=== PATIENT | female | born 1935 | race African-American/Black ===

== ENCOUNTER 2016-08-26 09:48 | Emergency (ER) | payer MEDICARE, OTHER ==
[2016-08-26] MEDS ORDERED: Pantoprazole 40 MG VIAL ONE (10:17)
[2016-08-26 10:45] LABS: ALT (SGPT) 14 U/L (0-55); AST (SGOT) 12 U/L (5-34); Albumin 4.3 g/dL (3.4-4.8); Alkaline Phosphatase 58 U/L (40-150); Anion Gap 15 mmol/L (10-20); BUN (Urea Nitrogen) 37 mg/dL (9.8-20.1); Bilirubin, Total 1.4 mg/dL (0.2-1.2); Calc. Creatinine Clearance 0 mL/min (70-130); Carbon Dioxide 23 mmol/L (23-31); Chloride 106 mmol/L (98-107); Estimated GFR-MDRD 42; Globulin 3.6 g/dL (2.4-3.5); Glucose 104 mg/dL (83-110); Lipase 33 U/L (8-78); Potassium 5.7 mmol/L (3.5-5.1); Protein, Total 7.9 g/dL (5.8-8.1); Sodium 138 mmol/L (136-145)
[2016-08-26 10:46] LABS: CKMB 0.9 ng/mL (0-6.6); Troponin I Less than 0.010 ng/mL (< 0.028)
--- NOTE | 2016-08-26 10:47 | RAD ---
TWO VIEWS OF THE CHEST: Date: 08-26-16 Comparison: 12-04-11 History: Abdominal pain, heart palpitations. FINDINGS: Area of increased linear density in the left lung apex, stable when compared to the 2012 study. There is a small nodular density in the right perihilar region and right suprahilar region, also sta ble when compared to the 2012 exam. There is no pneumothorax, pleural fluid, lobar consolidations, o r alveolar edema. There is atherosclerotic calcification of the aortic arch. IMPRESSION: Stable appearance of the chest. No focal consolidation or alveolar edema. POS: [facility]
[2016-08-26 10:52] LABS: #Basophils 0.1 thou/uL (0.0-0.2); #Eosinphils 0.2 thou/uL (0.0-0.7); #Lymphocytes 1.7 thou/uL (1.20-3.40); #Monocytes 0.7 thou/uL (0.11-0.59); #Neutrophils 2.9 thou/uL (1.40-6.50); %Basophils 1.7 % (0.0-1.0); %Eosinophils 2.8 % (0.0-10.0); %Lymphocytes 31.4 % (21.0-51.0); %Neutrophils 52.1 % (42.0-75.0); Hemoglobin 14.2 g/dL (12.0-16.0); Mean Corpuscular HGB CONC 32.5 g/dL (32.0-36.0); Mean Corpuscular Hemoglobin 29.3 pg (27.0-31.0); Mean Corpuscular Volume 90.2 fl (81.0-99.0); Mean Platelet Volume 10.6 fL (7.4-10.4); Platelet Count 154 thou/uL (130-400); RBC Distribution Width 11.8 % (11.5-14.5); Red Blood Cell (RBC) Count 4.86 mill/uL (4.20-5.40); White Blood Cell (WBC) Count 5.5 thou/uL (4.8-10.8)
--- NOTE | 2016-08-26 11:13 | CT ---
CT ABDOMEN AND PELVIS WITHOUT IV CONTRAST: Date: 08-26-16 History: Left lower quadrant abdominal pain. Elevated creatinine. Comparison: 04-23-10 FINDINGS: Again noted are hypodense bilateral renal lesions which do demonstrate attenuation coefficients most consistent with cysts. Largest cyst in the midportion left kidney measures 5.4 cm. Some of these cy sts are larger in size compared to the prior study but are most likely related to enlargement of cys ts. No renal or ureteral calculi are seen and there is no hydronephrosis. There is increased density seen layering dependently within the gallbladder lumen which may represen t gallbladder calculi and/or small amount of sludge. There are a few subcentimeter too small to characterize hypodense lesions within the right hepatic l obe which were also present on the prior exam. Calcified granuloma in the liver is again present. Vascular calcifications are seen in the coronary arteries as well as involving the abdominal aorta a nd iliac arteries. Minimal linear scarring versus atelectasis seen in the right middle lobe and lingula. The spleen, pancreas, bilateral adrenal glands, urinary bladder, uterus, and adnexal structures demo nstrate a grossly normal nonenhanced CT appearance. There is diffuse colonic diverticulosis, much greater involving the sigmoid colon without CT finding s to suggest diverticulosis. There are degenerative changes in the spine. Grade I anterolisthesis of L4 on L5 is seen and there a re severe facet hypertrophic change at this level. There is also severe narrowing of the central spi nal canal. Similar findings were seen on the prior exam although the degree of anterolisthesis does appear slightly increased from that exam. 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 IMPRESSION: 1. No acute findings are seen on this nonenhanced CT scan examination. 2. Subcentimeter too small to characterize hypodense lesions in the right hepatic lobe. 3. Bilateral renal cysts, some of which have mildly enlarged from the prior exam. No renal or ureter al calculi are seen. 4. Colonic diverticulosis. 5. Degenerative changes in the lumbar spine with grade I anterolisthesis of L4 on L5 and resultant s evere narrowing of the central spinal canal at this level. 6. Small hiatal hernia. POS: [facility]
[2016-08-26 11:58] LABS: Anion Gap 14 mmol/L (10-20); Bilirubin, Direct 0.5 mg/dL (0.1-0.3); Carbon Dioxide 23 mmol/L (23-31); Chloride 107 mmol/L (98-107); Potassium 6.1 mmol/L (3.5-5.1); Sodium 138 mmol/L (136-145)
[2016-08-26] MEDS ORDERED: Dextrose 50% Abboject 50 ML SYRINGE ONE (12:06)
[2016-08-26] MEDS ORDERED: Insulin Regular 300 UNITS/3 ML VIAL ONE (12:06)
[2016-08-26] MEDS ORDERED: Albuterol Sulfate 2.5 mg/3 ml Neb ONE (12:07)
[2016-08-26] MEDS ORDERED: Furosemide 40 MG/4 ML VIAL ONE (14:27)
== END 2016-08-26 14:56 | disposition short-term general hospital (02) ==
LOC: NAV ERS 09:48
DX: R07.9 Chest pain, unspecified (principal); E87.5 Hyperkalemia; E11.9 Type 2 diabetes mellitus without complications; I10 Essential (primary) hypertension; E78.5 Hyperlipidemia, unspecified; Z79.82 Long term (current) use of aspirin; Z79.899 Other long term (current) drug therapy
CPT/HCPCS: 36415; 36416; 71020; 74176; 80053; 82248; 82553; 83690; 83880; 84484; 85025; 93005; 94640; 94760; 96374; 96375; C9113; J1815; J1940; J7611

== ENCOUNTER 2017-07-09 23:53 | Emergency (ER) | payer MEDICARE, MEDICAID ==
[~2017-07-09 23:53] MED LIST: Iopamidol 370 76% 100 ML VIAL ONE
[2017-07-10 00:30] LABS: Band 4 % (5-11); Eosinophils 3 % (0-10); Hemoglobin 13.7 g/dL (12.0-16.0); Lymphocytes 26 % (21-51); MDiff Complete? YES; Mean Corpuscular HGB CONC 32.4 g/dL (32.0-36.0); Mean Corpuscular Volume 86.4 fl (81.0-99.0); Mean Platelet Volume 10.2 fL (7.4-10.4); Monocytes 12 % (0-10); Neutrophil 55 % (42-75); PLT Morphology Comment Appears Adequate; Platelet Count 117 thou/uL (130-400); RBC Distribution Width 11.8 % (11.5-14.5); RBC Morphology Normal; White Blood Cell (WBC) Count 6.1 thou/uL (4.8-10.8)
[2017-07-10 00:37] LABS: ALT (SGPT) 9 U/L (8-55); AST (SGOT) 14 U/L (5-34); Albumin 4.2 g/dL (3.4-4.8); Alkaline Phosphatase 47 U/L (40-150); Anion Gap 18 mmol/L (10-20); BUN (Urea Nitrogen) 47 mg/dL (9.8-20.1); Bilirubin, Total 0.6 mg/dL (0.2-1.2); Calc. Creatinine Clearance 0 mL/min (70-130); Calcium 10.9 mg/dL (7.8-10.44); Carbon Dioxide 21 mmol/L (23-31); Chloride 108 mmol/L (98-107); Estimated GFR-MDRD 31; Globulin 3.8 g/dL (2.4-3.5); Glucose 166 mg/dL (83-110); Potassium 4.7 mmol/L (3.5-5.1); Sodium 142 mmol/L (136-145)
[2017-07-10 00:39] LABS: CKMB 1.2 ng/mL (0-6.6); Troponin I Less than 0.010 ng/mL (< 0.028)
[2017-07-10] MEDS ORDERED: Sodium Chloride 0.9% 1,000 ML ONE (02:27)
[2017-07-10] MEDS ORDERED: Enoxaparin Sodium 80 MG/0.8 ML SYRINGE ONE (03:10)
--- NOTE | 2017-07-10 07:38 | RAD ---
PORTABLE CHEST 1 VIEW: DATE: 07/10/17. TIME: 12:23 a.m. HISTORY: Dyspnea. FINDINGS: The heart size is normal. The aorta is tortuous. The lungs are expanded without focal areas of cons olidation or pneumothorax or pleural effusions. IMPRESSION: No acute process. POS: [facility]
--- NOTE | 2017-07-10 07:41 | CT ---
Addendum created by Ivelisse Robertson MD on 07/10/2017 2:53 AM Central Time ([place] & [place]) THIS REPORT CONTAINS FINDINGS THAT MAY BE CRITICAL TO PATIENT CARE. The findings were verbally commun icated via telephone conference with VANNA DAVID at 2:53 AM MATERIAL YARD CLERK on 07/10/2017. The findings were ac knowledged and understood. Initial Report created on 07/10/2017 2:50 AM Central Time ([place] & [place]) EXAM: CT Angiography Chest With Intravenous Contrast CLINICAL HISTORY: 81 years old, female; Pain; Chest pain; On breathing; Patient HX: SOB; Elevated d-dimer TECHNIQUE: Axial computed tomographic angiography images of the chest with intravenous contrast using pulmonary embolism protocol. All CT scans at this facility use one or more dose reduction techniques, viz.: aut omated exposure control; ma/kV adjustment per patient size (including targeted exams where dose is ma tched to indication; i.e. head); or iterative reconstruction technique. MIP reconstructed images were created and reviewed. CONTRAST: 60 mL of ISOVUE 370 administered intravenously. COMPARISON: No relevant prior studies available. FINDINGS: Pulmonary arteries: Exam is limited secondary to poor opacification of the pulmonary arteries. Suspect diffuse bilateral pulmonary emboli. Aorta: Atherosclerotic vascular calcification. No thoracic aortic aneurysm. Lungs: Unremarkable. No mass. No consolidation. Pleural space: Unremarkable. No significant effusion. No pneumothorax. Heart: Coronary artery calcifications. No significant pericardial effusion. No evidence of RV dysfunc tion. Thyroid: Heterogeneous enlarged thyroid lobe. Bones/joints: Degenerative changes in the spine. No acute fracture. No dislocation. Soft tissues: Unremarkable. Lymph nodes: Unremarkable. No enlarged lymph nodes. Liver: There is a 7 mm cyst in the liver. Kidneys and ureters: Small cysts in the left kidney. IMPRESSION: 1. Limited exam secondary to poor opacification of the pulmonary arteries. Suspect diffuse bilateral pulmonary emboli. 2. Thyroid goiter. Thank you for allowing us to participate in the care of your patient. Dictated and Authenticated by: Ivelisse Robertson MD 07/10/2017 2:50 AM Central Time ([place] & [place]) FINAL REPORT CT PULMONARY ANGIOGRAM WITH IV CONTRAST AND 3D POSTPROCESSING: Date: 07/10/17 FINDINGS/IMPRESSION: I agree with the preliminary report given by Dr. Ivelisse Robertson of [facility]. POS: [facility]
== END 2017-07-10 04:07 | disposition short-term general hospital (02) ==
LOC: NAV ERS 23:53
DX: I26.99 Other pulmonary embolism without acute cor pulmonale (principal); I10 Essential (primary) hypertension; E11.9 Type 2 diabetes mellitus without complications; E78.5 Hyperlipidemia, unspecified; Z79.899 Other long term (current) drug therapy; Z79.82 Long term (current) use of aspirin
CPT/HCPCS: 36415; 71045; 71275; 80053; 82553; 83880; 84484; 85025; 85379; 93005; 96372; J1650; J7050

== ENCOUNTER 2017-11-07 09:37 | Emergency (ER) | payer MEDICARE, OTHER ==
[2017-11-07] MEDS ORDERED: Mag-Al Plus 1200 MG/1200 MG/120 MG/30 ML UDCUP ONE (10:33)
[2017-11-07 10:59] LABS: #Basophils 0.1 thou/uL (0.0-0.2); #Eosinphils 0.2 thou/uL (0.0-0.7); #Monocytes 0.5 thou/uL (0.11-0.59); #Neutrophils 2.5 thou/uL (1.40-6.50); %Basophils 1.1 % (0.0-1.0); %Eosinophils 3.7 % (0.0-10.0); %Lymphocytes 37.3 % (21.0-51.0); %Neutrophils 47.9 % (42.0-75.0); Hemoglobin 12.8 g/dL (12.0-16.0); Mean Corpuscular HGB CONC 32.6 g/dL (32.0-36.0); Mean Corpuscular Hemoglobin 28.1 pg (27.0-31.0); Mean Corpuscular Volume 86.1 fl (81.0-99.0); Mean Platelet Volume 8.8 fL (7.4-10.4); Platelet Count 163 thou/uL (130-400); RBC Distribution Width 12.2 % (11.5-14.5); Red Blood Cell (RBC) Count 4.58 mill/uL (4.20-5.40); White Blood Cell (WBC) Count 5.2 thou/uL (4.8-10.8)
[2017-11-07 11:08] LABS: ALT (SGPT) 11 U/L (8-55); AST (SGOT) 13 U/L (5-34); Albumin 4.1 g/dL (3.4-4.8); Alkaline Phosphatase 39 U/L (40-150); Anion Gap 14 mmol/L (10-20); BUN (Urea Nitrogen) 27 mg/dL (9.8-20.1); Bilirubin, Total 0.9 mg/dL (0.2-1.2); CK (CPK) 106 U/L (29-168); Calc. Creatinine Clearance 0 mL/min (70-130); Calcium 10.5 mg/dL (7.8-10.44); Carbon Dioxide 23 mmol/L (23-31); Chloride 110 mmol/L (98-107); Estimated GFR-MDRD 51; Globulin 3.2 g/dL (2.4-3.5); Glucose 104 mg/dL (83-110); Lipase 30 U/L (8-78); Potassium 4.7 mmol/L (3.5-5.1); Protein, Total 7.3 g/dL (6.0-8.3); Sodium 142 mmol/L (136-145)
[2017-11-07 11:09] LABS: CKMB 1.1 ng/mL (0-6.6); Troponin I Less than 0.010 ng/mL (< 0.028)
== END 2017-11-07 12:16 | disposition home or self-care (01) ==
LOC: NAV ERS 09:37
DX: K29.00 Acute gastritis without bleeding (principal); Z86.711 Personal history of pulmonary embolism; E11.9 Type 2 diabetes mellitus without complications; I10 Essential (primary) hypertension; E78.5 Hyperlipidemia, unspecified; Z79.899 Other long term (current) drug therapy; Z79.82 Long term (current) use of aspirin
CPT/HCPCS: 80053; 82553; 83690; 84484; 85025; 85379; 93005

== ENCOUNTER 2019-01-21 08:53 | Emergency (ER) | payer MEDICARE, OTHER ==
[2019-01-21 09:50] LABS: Bilirubin Negative (Negative); Blood, Urine Moderate (Negative); Glucose, Urine (Dipstick) Negative (Negative); Leukocyte Moderate (Negative); Nitrite Positive (Negative); Protein, Urine (Dipstick) > or equal to 300 mg/dL (Neg-Trace)
[2019-01-21 09:52] LABS: INR-International Normal Ratio 1.5; PTT 35.7 SEC (22.9-36.1); Prothrombin Time 17.7 SEC (12.0-14.7)
[2019-01-21 09:53] LABS: #Basophils 0.1 thou/uL (0.0-0.2); #Eosinphils 0.1 thou/uL (0.0-0.7); #Lymphocytes 1.3 thou/uL (1.20-3.40); #Monocytes 0.4 thou/uL (0.11-0.59); #Neutrophils 2.9 thou/uL (1.40-6.50); %Basophils 1.3 % (0.0-1.0); %Eosinophils 2.9 % (0.0-10.0); %Lymphocytes 26.2 % (21.0-51.0); %Neutrophils 60.6 % (42.0-75.0); Differential Comment SCANNED; Mean Corpuscular HGB CONC 32.1 g/dL (32.0-36.0); Mean Corpuscular Hemoglobin 28.7 pg (27.0-31.0); Mean Corpuscular Volume 89.4 fL (78.0-98.0); Mean Platelet Volume 8.1 fL (7.4-10.4); Platelet Count 135 thou/uL (130-400); RBC Distribution Width 12.3 % (11.5-14.5); Red Blood Cell (RBC) Count 4.54 mill/uL (4.20-5.40); White Blood Cell (WBC) Count 4.8 thou/uL (4.8-10.8)
[2019-01-21 09:54] LABS: Clarity Hazy (Clear)
[2019-01-21 10:01] LABS: ALT (SGPT) 13 U/L (8-55); AST (SGOT) 15 U/L (5-34); Albumin 4.1 g/dL (3.4-4.8); Alkaline Phosphatase 41 U/L (40-150); Anion Gap 15 mmol/L (10-20); BUN (Urea Nitrogen) 24 mg/dL (9.8-20.1); Bilirubin, Total 1.3 mg/dL (0.2-1.2); Calc. Creatinine Clearance 0 mL/min (70-130); Calcium 9.9 mg/dL (7.8-10.44); Carbon Dioxide 23 mmol/L (23-31); Chloride 109 mmol/L (98-107); Estimated GFR-MDRD 45; Globulin 3.1 g/dL (2.4-3.5); Glucose 104 mg/dL (83-110); Protein, Total 7.2 g/dL (6.0-8.3); Sodium 143 mmol/L (136-145)
[2019-01-21 10:01] LABS: Bacteria/HPF 3+ HPF (None Seen); RBC/HPF 0-3 HPF (0-3); Squamous Epithelial 0-3 HPF (0-3); WBC/HPF Greater Than 50 HPF (0-3)
--- NOTE | 2019-01-21 10:41 | CT ---
CT of abdomen and pelvis: 01/21/2019 COMPARISON: 08/26/2016 HISTORY: Left lower quadrant pain, blood in stool TECHNIQUE: Axial CT imaging at 5 mm intervals from lung bases through pubic symphysis without contras t. Coronal reformatted imaging obtained. FINDINGS: Lack of contrast media limits assessment of the viscera, bowel, vascular structures, and fo r lymphadenopathy. The imaged lung bases are unremarkable. No free intraperitoneal air or fluid is seen. Incidental note is made of cholelithiasis. There are 2 subcentimeter nonspecific hypodensities within the right lobe of the liver, too small to characterize, stable when compared to 08/26/2016 exam. The spleen, pancreas, and adrenal glands demonstrate no acute findings. Stable thickening of the left adrenal gland noted, unchanged since 200 7. Multiple stable bilateral renal cysts are present. Limited assessment of the bowel without oral contrast media demonstrates extensive diverticulosis of the descending colon and sigmoid colon. No evidence for diverticulitis. Appendix is unremarkable. There is multifocal atherosclerotic calcification of the abdominal aorta and its branches. There is degenerative change involving the bilateral hips, involving the bilateral sacroiliac joints, and seen throughout the lumbar spine with prominent lower lumbar spine facet hypertrophy and disc space narrowing. No worrisome lytic or blastic bone lesions. IMPRESSION: Extensive colonic diverticulosis without evidence for diverticulitis Cholelithiasis
== END 2019-01-21 11:06 | disposition home or self-care (01) ==
LOC: NAV ERS 08:53
DX: N30.00 Acute cystitis without hematuria (principal); K64.4 Residual hemorrhoidal skin tags; E11.9 Type 2 diabetes mellitus without complications; K21.9 Gastro-esophageal reflux disease without esophagitis; E78.5 Hyperlipidemia, unspecified; E78.00 Pure hypercholesterolemia, unspecified; I10 Essential (primary) hypertension; J45.909 Unspecified asthma, uncomplicated; Z79.899 Other long term (current) drug therapy; Z79.01 Long term (current) use of anticoagulants; Z79.82 Long term (current) use of aspirin
CPT/HCPCS: 74176; 80053; 81003; 81015; 82274; 85025; 85610; 85730; 87077; 87086; 87186

== ENCOUNTER 2019-03-30 20:30 | Emergency (ER) | payer MEDICARE, OTHER ==
[2019-03-30 21:09] LABS: #Basophils 0.1 thou/uL (0.0-0.2); #Eosinphils 0.2 thou/uL (0.0-0.7); #Lymphocytes 2.1 thou/uL (1.20-3.40); #Monocytes 0.6 thou/uL (0.11-0.59); #Neutrophils 1.8 thou/uL (1.40-6.50); %Basophils 1.7 % (0.0-1.0); %Eosinophils 4.4 % (0.0-10.0); %Lymphocytes 44.2 % (21.0-51.0); %Monocytes 11.7 % (0.0-10.0); Hemoglobin 13.3 g/dL (12.0-16.0); Mean Corpuscular HGB CONC 32.3 g/dL (32.0-36.0); Mean Corpuscular Hemoglobin 29.3 pg (27.0-31.0); Mean Corpuscular Volume 90.6 fL (78.0-98.0); Mean Platelet Volume 10.8 fL (7.4-10.4); Platelet Count 51 thou/uL (130-400); Red Blood Cell (RBC) Count 4.55 mill/uL (4.20-5.40); White Blood Cell (WBC) Count 4.7 thou/uL (4.8-10.8)
[2019-03-30 21:18] LABS: Platelet Morphology Comment Appears Decreased; RBC Morphology Normal
[2019-03-30 21:27] LABS: ALT (SGPT) 10 U/L (8-55); AST (SGOT) 16 U/L (5-34); Albumin 4.2 g/dL (3.4-4.8); Alkaline Phosphatase 34 U/L (40-110); Anion Gap 17 mmol/L (10-20); BUN (Urea Nitrogen) 36 mg/dL (9.8-20.1); Bilirubin, Total 0.8 mg/dL (0.2-1.2); Calc. Creatinine Clearance 0 mL/min (70-130); Calcium 10.2 mg/dL (7.8-10.44); Carbon Dioxide 18 mmol/L (23-31); Chloride 110 mmol/L (98-107); Estimated GFR-MDRD 40; Globulin 3.3 g/dL (2.4-3.5); Glucose 91 mg/dL (83-110); Potassium 4.4 mmol/L (3.5-5.1); Protein, Total 7.5 g/dL (6.0-8.3); Sodium 141 mmol/L (136-145)
[2019-03-30] MEDS ORDERED: Sodium Chloride 0.9% 1,000 ML ONE (21:35)
[2019-03-30 21:38] LABS: Bilirubin Negative (Negative); Blood, Urine Trace (Negative); Clarity Clear (Clear); Glucose, Urine (Dipstick) Negative (Negative); Leukocyte Negative (Negative); Nitrite Negative (Negative); Protein, Urine (Dipstick) 100 mg/dL (Neg-Trace); Urobilinogen 0.2 mg/dL (Less than 2)
[2019-03-30 21:46] LABS: Bacteria/HPF Rare-Few HPF (None Seen); RBC/HPF 0-3 HPF (0-3); Squamous Epithelial 0-3 HPF (0-3); WBC/HPF 0-3 HPF (0-3)
--- NOTE | 2019-03-30 22:05 | CT ---
CT Abdomen Pelvis WO Con: 03/30/2019 9:34 PM HISTORY: Left-sided abdominal pain COMPARISON: 01/21/2019 TECHNIQUE: Multiple contiguous axial images were obtained and a CT of the abdomen and pelvis without IV contrast . Coronal and sagittal reformats were performed. FINDINGS: This examination is limited for the evaluation of solid organs and vascular structures due to the lac k of intravenous contrast. Lower Chest: within normal limits. Abdomen: Liver: Stable subcentimeter hypodensity in the right lobe of the liver. Bile Ducts: Normal caliber. Gallbladder: Hyperdensity in the dependent aspect likely represents gallstones. Pancreas: within normal limits. Spleen: within normal limits. Adrenals: within normal limits. Kidneys: Bilateral hypodensities measuring up to 4.8 cm in size represents cysts. Pelvis: Reproductive Organs: No pelvic masses. Ureters: within normal limits. Bladder: within normal limits. Bowel: Normal caliber. Scattered diverticula in the colon. Normal appendix. Mesenteric Lymph Nodes: No enlarged mesenteric lymph nodes. Peritoneum: No ascites or free air, no fluid collection. Vessels: Atherosclerotic calcifications in the aorta Retroperitoneum: within normal limits. Abdominal Wall: within normal limits. Bones: Degenerative changes in the spine. IMPRESSION: 1. No evidence of acute intraabdominal or pelvic abnormality. 2. Diverticulosis 3. Cholelithiasis 4. Renal cysts
== END 2019-03-30 22:50 | disposition home or self-care (01) ==
LOC: NAV ERS 20:30
DX: K64.4 Residual hemorrhoidal skin tags (principal); K80.20 Calculus of gallbladder without cholecystitis without obstruction; E11.9 Type 2 diabetes mellitus without complications; E78.5 Hyperlipidemia, unspecified; E78.00 Pure hypercholesterolemia, unspecified; I10 Essential (primary) hypertension; K21.9 Gastro-esophageal reflux disease without esophagitis; J45.909 Unspecified asthma, uncomplicated; Z79.51 Long term (current) use of inhaled steroids; Z79.82 Long term (current) use of aspirin; Z79.899 Other long term (current) drug therapy
CPT/HCPCS: 74176; 80053; 81003; 81015; 82274; 85025; 96360; J7050

== ENCOUNTER 2020-11-29 03:30 | Emergency (ER) | payer MEDICARE, OTHER ==
[2020-11-29] MEDS ORDERED: Pantoprazole 40 MG VIAL ONE (04:06)
[2020-11-29] MEDS ORDERED: Morphine 4 MG/ML VIAL ONE ×3 (04:06→09:08)
[2020-11-29] MEDS ORDERED: Ondansetron PF 4 MG/2 ML Vial ONE ×2 (04:06→06:16)
[2020-11-29 04:09] LABS: #Basophils 0.1 thou/uL (0.0-0.2); #Lymphocytes 1.1 thou/uL (1.20-3.40); #Monocytes 0.3 thou/uL (0.11-0.59); #Neutrophils 4.4 thou/uL (1.40-6.50); %Eosinophils 0.4 % (0.0-10.0); %Lymphocytes 18.2 % (21.0-51.0); %Monocytes 4.9 % (0.0-10.0); %Neutrophils 75.5 % (42.0-75.0); Hemoglobin 13.8 g/dL (12.0-16.0); Mean Corpuscular HGB CONC 31.3 g/dL (32.0-36.0); Mean Corpuscular Hemoglobin 29.8 pg (27.0-31.0); Mean Corpuscular Volume 95.1 fL (78.0-98.0); Platelet Count 124 thou/uL (130-400); Red Blood Cell (RBC) Count 4.65 mill/uL (4.20-5.40); White Blood Cell (WBC) Count 5.8 thou/uL (4.8-10.8)
[2020-11-29 04:22] LABS: ALT (SGPT) 9 U/L (8-55); AST (SGOT) 11 U/L (5-34); Albumin 4.2 g/dL (3.4-4.8); Alkaline Phosphatase 38 U/L (40-110); Anion Gap 15 mmol/L (10-20); BUN (Urea Nitrogen) 37 mg/dL (9.8-20.1); Bilirubin, Total 0.7 mg/dL (0.2-1.2); Calc. Creatinine Clearance 0 mL/min (70-130); Calcium 9.9 mg/dL (7.8-10.44); Carbon Dioxide 19 mmol/L (23-31); Chloride 109 mmol/L (98-107); Globulin 3.4 g/dL (2.4-3.5); Glucose 185 mg/dL (83-110); Lipase 44 U/L (8-78); Potassium 4.2 mmol/L (3.5-5.1); Protein, Total 7.6 g/dL (5.8-8.1); Sodium 139 mmol/L (136-145)
[2020-11-29] MEDS ORDERED: Sodium Chloride 0.9% 1,000 ML ONE (04:43)
[2020-11-29 05:43] LABS: Bilirubin Negative (Negative); Blood, Urine Moderate (Negative); Clarity Slightly Cloudy (Clear); Glucose, Urine (Dipstick) Negative (Negative); Ketone, Urine Negative (Negative); Leukocyte Small (Negative); Nitrite Negative (Negative); Protein, Urine (Dipstick) 100 mg/dL (Neg-Trace); pH, Urine 5.5 (5.0-9.0)
[2020-11-29 05:51] LABS: Bacteria/HPF 2+ HPF (None Seen)
[2020-11-29 05:54] LABS: Renal Epithelial 0-3 HPF (None Seen)
[2020-11-29] MEDS ORDERED: cefTRIAXone\\ROCEPHIN 1 GM VIAL ONE (06:20)
[2020-11-29] MEDS ORDERED: Sodium Chloride 0.9% 100 ML ONE (06:20)
== END 2020-11-29 09:23 | disposition short-term general hospital (02) ==
LOC: NAV ERS 03:30
DX: K81.0 Acute cholecystitis (principal); E11.9 Type 2 diabetes mellitus without complications; K21.9 Gastro-esophageal reflux disease without esophagitis; E78.5 Hyperlipidemia, unspecified; I10 Essential (primary) hypertension; Z79.82 Long term (current) use of aspirin; Z79.899 Other long term (current) drug therapy
CPT/HCPCS: 74176; 80053; 81003; 81015; 83690; 84484; 85025; 93005; 96365; 96375; 96376; C9113; J0696; J2270; J2405; J3490; J7050

== ENCOUNTER 2022-03-01 05:01 | Emergency (ER) | payer MEDICARE, OTHER ==
[2022-03-01] MEDS ORDERED: Aspirin Chewable 81 MG TAB ONE (05:24)
[2022-03-01 06:07] LABS: ALT (SGPT) 9 U/L (8-55); AST (SGOT) 11 U/L (5-34); Albumin 4.1 g/dL (3.4-4.8); Alkaline Phosphatase 33 U/L (40-110); Anion Gap 19 mmol/L (10-20); BUN (Urea Nitrogen) 51 mg/dL (9.8-20.1); Bilirubin, Total 0.8 mg/dL (0.2-1.2); Calc. Creatinine Clearance 0 mL/min (70-130); Calcium 9.1 mg/dL (7.8-10.44); Carbon Dioxide 19 mmol/L (23-31); Chloride 108 mmol/L (98-107); Estimated GFR 27; Globulin 3.4 g/dL (2.4-3.5); Glucose 122 mg/dL (83-110); Lipase 51 U/L (8-78); Potassium 4.1 mmol/L (3.5-5.1); Sodium 142 mmol/L (136-145)
[2022-03-01 06:14] LABS: #Eosinphils 0.2 thou/uL (0.0-0.7)
[2022-03-01 06:15] LABS: #Lymphocytes 1.6 thou/uL (1.20-3.40); #Monocytes 0.5 thou/uL (0.11-0.59); %Basophils 0.9 % (0.0-1.0); %Eosinophils 4.6 % (0.0-10.0); %Lymphocytes 37.1 % (21.0-51.0); %Monocytes 12.2 % (0.0-10.0); %Neutrophils 45.2 % (42.0-75.0); Hemoglobin 12.2 g/dL (12.0-16.0); Mean Corpuscular HGB CONC 33.6 g/dL (32.0-36.0); Mean Corpuscular Hemoglobin 31.9 pg (27.0-31.0); Mean Platelet Volume 8.7 fL (7.4-10.4); Platelet Count 103 thou/uL (130-400); RBC Distribution Width 12.4 % (11.5-14.5); Red Blood Cell (RBC) Count 3.83 mill/uL (4.20-5.40); White Blood Cell (WBC) Count 4.3 thou/uL (4.8-10.8)
[2022-03-01 06:16] LABS: Protein, Total 7.5 g/dL (5.8-8.1)
[2022-03-01] MEDS ORDERED: Sodium Chloride 0.9% 1,000 ML ONE (07:25)
[2022-03-01 07:34] LABS: Bilirubin Negative (Negative); Blood, Urine Trace (Negative); Clarity Clear (Clear); Glucose, Urine (Dipstick) Negative (Negative); Ketone, Urine Negative (Negative); Leukocyte Trace (Negative); Nitrite Negative (Negative); Protein, Urine (Dipstick) 30 mg/dL (Neg-Trace); pH, Urine 5.5 (5.0-9.0)
[2022-03-01 07:39] LABS: Bacteria/HPF None Seen HPF (None Seen); RBC/HPF 0-3 HPF (0-3); Squamous Epithelial 0-3 HPF (0-3); WBC/HPF 0-3 HPF (0-3)
[2022-03-01 08:52] LABS: Troponin I Less than 0.010 ng/mL (< 0.028)
== END 2022-03-01 09:34 | disposition home or self-care (01) ==
LOC: NAV ERS 05:01
DX: R07.89 Other chest pain (principal); E11.9 Type 2 diabetes mellitus without complications; K21.9 Gastro-esophageal reflux disease without esophagitis; E78.00 Pure hypercholesterolemia, unspecified; I10 Essential (primary) hypertension; Z79.899 Other long term (current) drug therapy
CPT/HCPCS: 71045; 80053; 81003; 81015; 83690; 83880; 84484; 85025; 85379; 93005; 94760; 96360; J7050

== ENCOUNTER 2022-09-08 01:11 | Emergency (ER) | payer OTHER ==
[2022-09-08] MEDS ORDERED: Morphine 2 MG/ML VIAL ONE (01:42)
[2022-09-08] MEDS ORDERED: Ondansetron PF 4 MG/2 ML Vial ONE (01:42)
[2022-09-08] MEDS ORDERED: Sodium Chloride 0.9% 1,000 ML ONE (01:42)
[2022-09-08 02:21] LABS: Hemoglobin 12.2 g/dL (12.0-16.0); Mean Corpuscular HGB CONC 32.2 g/dL (32.0-36.0); Mean Corpuscular Hemoglobin 30.5 pg (27.0-31.0); Mean Corpuscular Volume 94.8 fl (78.0-98.0); White Blood Cell (WBC) Count 5.1 10x3/uL (4.8-10.8)
[2022-09-08 02:22] LABS: #Eosinphils 0.1 thou/uL (0.0-0.7); #Lymphocytes 0.9 thou/uL (1.20-3.40); #Monocytes 0.5 thou/uL (0.11-0.59); #Neutrophils 3.6 thou/uL (1.40-6.50); %Basophils 1.2 % (0.0-1.0); %Eosinophils 2.3 % (0.0-10.0); %Lymphocytes 16.9 % (21.0-51.0); %Monocytes 10.3 % (0.0-10.0); %Neutrophils 69.4 % (42.0-75.0); Manual Diff?? NO; Mean Platelet Volume 7.6 fL (7.4-10.4); Platelet Count 123 10x3/uL (130-400); RBC Distribution Width 12.3 % (11.5-14.5)
[2022-09-08 02:34] LABS: Bilirubin Negative (Negative); Blood, Urine Small (Negative); Clarity Slightly Cloudy (Clear); Glucose, Urine (Dipstick) Negative (Negative); Ketone, Urine Negative (Negative); Leukocyte Small (Negative); Nitrite Positive (Negative); Protein, Urine (Dipstick) 30 mg/dL (Neg-Trace); Urobilinogen 0.2 mg/dL (Less than 2); pH, Urine 6.5 (5.0-9.0)
[2022-09-08 02:35] LABS: Bacteria/HPF 3+ HPF (None Seen); RBC/HPF 0-3 HPF (0-3); Squamous Epithelial None Seen HPF (0-3); WBC/HPF 21-50 HPF (0-3)
[2022-09-08 02:39] LABS: CRP (Inflammatory) Less than 0.50 mg/dL (= or < 0.5)
[2022-09-08 02:40] LABS: ALT (SGPT) 10 U/L (8-55); AST (SGOT) 12 U/L (5-34); Albumin 4.3 g/dL (3.4-4.8); Alkaline Phosphatase 26 U/L (40-110); Anion Gap 17 mmol/L (10-20); BUN (Urea Nitrogen) 48 mg/dL (9.8-20.1); Bilirubin, Total 1.2 mg/dL (0.2-1.2); Calc. Creatinine Clearance 0 mL/min (70-130); Calcium 11.1 mg/dL (7.8-10.44); Carbon Dioxide 24 mmol/L (23-31); Chloride 107 mmol/L (98-107); Estimated GFR 27; Globulin 3.3 g/dL (2.4-3.5); Glucose 135 mg/dL (83-110); Potassium 4.9 mmol/L (3.5-5.1); Protein, Total 7.6 g/dL (5.8-8.1); Sodium 143 mmol/L (136-145)
[2022-09-08] MEDS ORDERED: Cephalexin 250 MG CAP ONE (03:01)
[2022-09-08] MEDS ORDERED: Loperamide HCl 2 MG CAP ONE (03:01)
== END 2022-09-08 03:25 | disposition home or self-care (01) ==
LOC: NAV ERS 01:11
DX: N39.0 Urinary tract infection, site not specified (principal); R19.7 Diarrhea, unspecified; E11.9 Type 2 diabetes mellitus without complications; E78.00 Pure hypercholesterolemia, unspecified; I10 Essential (primary) hypertension
CPT/HCPCS: 51701; 80053; 81003; 81015; 82274; 83630; 85025; 86140; 87077; 87086; 87328; 87329; 96361; 96374; 96375; J2272; J2405; J7050

== ENCOUNTER 2023-09-21 07:42 | Emergency (ER) | payer OTHER ==
[2023-09-21 08:46] LABS: #Basophils 0.1 thou/uL (0.0-0.2); #Eosinphils 0.1 thou/uL (0.0-0.7); #Lymphocytes 1.3 thou/uL (1.20-3.40); #Monocytes 0.3 thou/uL (0.11-0.59); #Neutrophils 2.8 thou/uL (1.40-6.50); %Basophils 1.4 % (0.0-1.0); %Eosinophils 1.8 % (0.0-10.0); %Lymphocytes 29.2 % (21.0-51.0); %Monocytes 7.1 % (0.0-10.0); %Neutrophils 60.4 % (42.0-75.0); Hematocrit 38.4 % (36.0-47.0); Hemoglobin 12.2 g/dL (12.0-16.0); Mean Corpuscular HGB CONC 31.7 g/dL (32.0-36.0); Mean Corpuscular Hemoglobin 28.8 pg (27.0-31.0); Mean Corpuscular Volume 90.7 fl (78.0-98.0); Mean Platelet Volume 9.4 fL (7.4-10.4); Platelet Count 95 10x3/uL (130-400); RBC Distribution Width 12.2 % (11.5-14.5); Red Blood Cell (RBC) Count 4.23 mill/uL (4.20-5.40); White Blood Cell (WBC) Count 4.6 10x3/uL (4.8-10.8)
[2023-09-21 08:47] LABS: ALT (SGPT) 11 U/L (8-55); AST (SGOT) 20 U/L (5-34); Albumin 4.2 g/dL (3.4-4.8); Alkaline Phosphatase 28 U/L (40-110); Anion Gap 15 mmol/L (10-20); BUN (Urea Nitrogen) 33 mg/dL (9.8-20.1); Bilirubin, Total 1.5 mg/dL (0.2-1.2); Calc. Creatinine Clearance 0 mL/min (70-130); Calcium 11.1 mg/dL (7.8-10.44); Carbon Dioxide 22 mmol/L (23-31); Chloride 109 mmol/L (98-107); Estimated GFR 30; Globulin 3.2 g/dL (2.4-3.5); Glucose 90 mg/dL (83-110); Potassium 4.4 mmol/L (3.5-5.1); Protein, Total 7.4 g/dL (5.8-8.1); Sodium 142 mmol/L (136-145)
== END 2023-09-21 10:25 | disposition home or self-care (01) ==
LOC: NAV ERS 07:42
DX: K64.4 Residual hemorrhoidal skin tags (principal); E11.9 Type 2 diabetes mellitus without complications; E78.00 Pure hypercholesterolemia, unspecified; I10 Essential (primary) hypertension; Z79.899 Other long term (current) drug therapy; Z79.82 Long term (current) use of aspirin
CPT/HCPCS: 80053; 85025; 99284

== ENCOUNTER 2023-12-22 09:57 | Emergency (ER) | payer MEDICAID, MEDICARE, OTHER ==
[2023-12-22] MEDS ORDERED: Sodium Chloride 0.9% 1,000 ML ONE (10:51)
[2023-12-22 11:20] LABS: #Eosinphils 0.1 thou/uL (0.0-0.7); #Lymphocytes 1.5 thou/uL (1.20-3.40); #Monocytes 0.5 thou/uL (0.11-0.59); %Basophils 0.3 % (0.0-1.0); %Eosinophils 2.8 % (0.0-10.0); %Lymphocytes 35.8 % (21.0-51.0); %Monocytes 11.2 % (0.0-10.0); %Neutrophils 49.8 % (42.0-75.0); Hematocrit 36.2 % (36.0-47.0); Hemoglobin 11.8 g/dL (12.0-16.0); Mean Corpuscular HGB CONC 32.6 g/dL (32.0-36.0); Mean Corpuscular Hemoglobin 28.7 pg (27.0-31.0); Mean Corpuscular Volume 87.9 fl (78.0-98.0); Platelet Count 128 10x3/uL (130-400); RBC Distribution Width 11.7 % (11.5-14.5); Red Blood Cell (RBC) Count 4.12 mill/uL (4.20-5.40); White Blood Cell (WBC) Count 4.1 10x3/uL (4.8-10.8)
[2023-12-22 11:32] LABS: Bilirubin Negative (Negative); Blood, Urine Large (Negative); Clarity Clear (Clear); Glucose, Urine (Dipstick) >=1000 mg/dL (Negative); Ketone, Urine Negative (Negative); Leukocyte Trace (Negative); Nitrite Positive (Negative); Protein, Urine (Dipstick) > or equal to 300 mg/dL (Neg-Trace)
[2023-12-22 11:35] LABS: ALT (SGPT) 13 U/L (8-55); AST (SGOT) 18 U/L (5-34); Albumin 3.9 g/dL (3.4-4.8); Alkaline Phosphatase 27 U/L (40-110); Anion Gap 15 mmol/L (10-20); BUN (Urea Nitrogen) 31 mg/dL (9.8-20.1); Bilirubin, Total 1.1 mg/dL (0.2-1.2); Calc. Creatinine Clearance 0 mL/min (70-130); Carbon Dioxide 24 mmol/L (23-31); Chloride 108 mmol/L (98-107); Estimated GFR 27; Globulin 3.7 g/dL (2.4-3.5); Glucose 89 mg/dL (83-110); Lipase 43 U/L (8-78); Potassium 3.6 mmol/L (3.5-5.1); Protein, Total 7.6 g/dL (5.8-8.1); Sodium 143 mmol/L (136-145)
[2023-12-22 11:39] LABS: Bacteria/HPF 3+ HPF (None Seen); CAUTI Indications for Culture Pelvic or flank pain; RBC/HPF 21-50 HPF (0-3); Squamous Epithelial 0-3 HPF (0-3); WBC/HPF Greater than 50 HPF (0-3)
[2023-12-22 11:41] LABS: Urine Culture Reflex Yes Yes
[2023-12-22] MEDS ORDERED: Sodium Chloride 0.9% 100 ML ONE ×2 (11:57→18:01)
[2023-12-22] MEDS ORDERED: cefTRIAXone (ROCEPHIN) 2 GM VIAL ONE (11:57)
[2023-12-22] MEDS ORDERED: Piperacillin/Tazobactam 4.5 GM VIAL ONE (18:00)
== END 2023-12-22 21:05 | disposition short-term general hospital (02) ==
LOC: NAV ERS 09:57
DX: N30.80 Other cystitis without hematuria (principal); R51.9 Headache, unspecified; I10 Essential (primary) hypertension; E11.9 Type 2 diabetes mellitus without complications; E78.00 Pure hypercholesterolemia, unspecified; K21.9 Gastro-esophageal reflux disease without esophagitis; J45.909 Unspecified asthma, uncomplicated; Z79.82 Long term (current) use of aspirin; Z79.899 Other long term (current) drug therapy
CPT/HCPCS: 51702; 74176; 80053; 81001; 83690; 85025; 87077; 87086; 87186; 96365; 96367; J0696; J2543; J2919

== ENCOUNTER 2024-01-08 09:40 | Inpatient (IN) | payer OTHER, MEDICARE, MEDICAID ==
[2024-01-08] MEDS ORDERED: Senokot S 8.6-50 MG TAB PO PRN ×2 (13:13→15:22)
[2024-01-08] MEDS ORDERED: Ondansetron ODT 4 MG TAB PO PRN (13:13)
[2024-01-08] MEDS: Polyethylene Glycol 3350 17 GM Packet PO SCH (15:40)
[2024-01-08] MEDS: Heparin 5,000 UNITS/ML VIAL SC SCH (15:40)
[2024-01-08] MEDS ORDERED: Famotidine 20 MG TAB PO SCH (21:00)
[2024-01-08] MEDS: Gabapentin 100 MG CAP PO SCH (21:08)
[2024-01-08] MEDS: Rosuvastatin 10 MG TAB PO SCH (21:08)
[2024-01-09 06:01] LABS: #Basophils 0.1 thou/uL (0.0-0.2); #Eosinphils 0.1 thou/uL (0.0-0.7); #Monocytes 0.6 thou/uL (0.11-0.59); #Neutrophils 3.2 thou/uL (1.40-6.50); %Basophils 0.9 % (0.0-1.0); %Eosinophils 2.1 % (0.0-10.0); %Monocytes 10.5 % (0.0-10.0); %Neutrophils 53.4 % (42.0-75.0); Hemoglobin 10.8 g/dL (12.0-16.0); Mean Corpuscular HGB CONC 33.7 g/dL (32.0-36.0); Mean Corpuscular Hemoglobin 29.4 pg (27.0-31.0); Mean Corpuscular Volume 87.3 fl (78.0-98.0); Mean Platelet Volume 7.9 fL (7.4-10.4); Platelet Count 169 10x3/uL (130-400); RBC Distribution Width 11.5 % (11.5-14.5); Red Blood Cell (RBC) Count 3.66 mill/uL (4.20-5.40)
[2024-01-09 06:14] LABS: ALT (SGPT) 28 U/L (8-55); AST (SGOT) 27 U/L (5-34); Albumin 2.8 g/dL (3.4-4.8); Alkaline Phosphatase 31 U/L (40-110); Anion Gap 16 mmol/L (10-20); BUN (Urea Nitrogen) 38 mg/dL (9.8-20.1); Bilirubin, Total 0.4 mg/dL (0.2-1.2); Calc. Creatinine Clearance 29 mL/min (70-130); Calcium 10.5 mg/dL (7.8-10.44); Carbon Dioxide 23 mmol/L (23-31); Chloride 104 mmol/L (98-107); Estimated GFR 37; Globulin 4.1 g/dL (2.4-3.5); Glucose 95 mg/dL (83-110); Potassium 4.4 mmol/L (3.5-5.1); Protein, Total 6.9 g/dL (5.8-8.1); Sodium 139 mmol/L (136-145)
[2024-01-09] MEDS: Amlodipine 5 MG TAB PO SCH (08:45)
[2024-01-09] MEDS: predniSONE 5 MG TAB PO SCH (09:52)
[2024-01-09] MEDS: predniSONE 10 MG TAB PO SCH (09:53)
[2024-01-09] MEDS: Acetaminophen 325 MG TAB PO PRN (13:48)
[2024-01-09] MEDS: Polyethylene Glycol 3350 17 GM Packet PO SCH (13:51)
[2024-01-10] MEDS: predniSONE 5 MG TAB PO SCH (07:37)
[2024-01-10] MEDS: Enoxaparin 30 MG (0.3 mL) SYRINGE SC SCH (07:37)
[2024-01-10] MEDS: tiZANidine HCl 4 MG TAB PO PRN (08:19)
[2024-01-10] MEDS ORDERED: Dextrose 50% Abboject 50 ML SYRINGE SLOW IVP PRN (13:11)
[2024-01-10] MEDS ORDERED: Glucagon 1 MG/ML KIT IM PRN (13:11)
[2024-01-10] MEDS ORDERED: Insulin Lispro 100 UNIT/ML 10 ML VIAL SC PRN ×2 (13:16→13:17)
[2024-01-11 05:51] LABS: #Basophils 0.1 thou/uL (0.0-0.2); #Eosinphils 0.2 thou/uL (0.0-0.7); #Lymphocytes 2.5 thou/uL (1.20-3.40); #Monocytes 0.8 thou/uL (0.11-0.59); #Neutrophils 3.4 thou/uL (1.40-6.50); %Basophils 0.7 % (0.0-1.0); %Eosinophils 2.3 % (0.0-10.0); %Lymphocytes 35.7 % (21.0-51.0); %Monocytes 11.9 % (0.0-10.0); %Neutrophils 49.4 % (42.0-75.0); Hematocrit 32.8 % (36.0-47.0); Mean Corpuscular HGB CONC 33.5 g/dL (32.0-36.0); Mean Corpuscular Hemoglobin 29.3 pg (27.0-31.0); Mean Corpuscular Volume 87.4 fl (78.0-98.0); Mean Platelet Volume 6.8 fL (7.4-10.4); Platelet Count 202 10x3/uL (130-400); RBC Distribution Width 11.6 % (11.5-14.5); Red Blood Cell (RBC) Count 3.76 mill/uL (4.20-5.40); White Blood Cell (WBC) Count 6.9 10x3/uL (4.8-10.8)
[2024-01-11 06:06] LABS: Anion Gap 16 mmol/L (10-20); BUN (Urea Nitrogen) 39 mg/dL (9.8-20.1); Calc. Creatinine Clearance 33 mL/min (70-130); Calcium 10.7 mg/dL (7.8-10.44); Carbon Dioxide 25 mmol/L (23-31); Chloride 105 mmol/L (98-107); Estimated GFR 43; Glucose 91 mg/dL (83-110); Potassium 4.2 mmol/L (3.5-5.1); Sodium 142 mmol/L (136-145)
[2024-01-11 11:39] LABS: Hemoglobin A1c 5.2 % (4.0-6.0)
[2024-01-11 11:46] VITALS: BMI 28.5
[2024-01-11] MEDS: Insulin Lispro 100 UNIT/ML 10 ML VIAL SC PRN (17:16)
[2024-01-12] MEDS: Artificial Tear Ophth Sol 15 ML BOT EA EYE PRN (18:27)
[2024-01-14 04:09] VITALS: BMI 28.1
[2024-01-14] MEDS: predniSONE 5 MG TAB PO SCH (07:36)
[2024-01-15] MEDS: Proctozone-HC 30 GM TUBE PR SCH (20:32)
[2024-01-16 07:32] VITALS: BP 123/68; TEMP 98.3
[2024-01-18] MEDS ORDERED: predniSONE 5 MG TAB PO SCH (08:00)
== END 2024-01-16 10:40 | disposition home or self-care (01) | DRG 945 ==
LOC: NAV ACUTE 14:46
PROVIDERS: ADMIT Student in an Organized Health Care Education/Training Program; ATTEND Student in an Organized Health Care Education/Training Program
PROC: F07Z9ZZ Gait Training/Functional Ambulation Treatment (ICD-10-PCS; principal; 2024-01-09)
DX: R53.81 Other malaise (principal); I13.0 Hypertensive heart and chronic kidney disease with heart failure and stage 1 through stage 4 chronic kidney disease, or unspecified chronic kidney disease; I50.32 Chronic diastolic (congestive) heart failure; M35.3 Polymyalgia rheumatica; E78.5 Hyperlipidemia, unspecified; I48.0 Paroxysmal atrial fibrillation; M19.90 Unspecified osteoarthritis, unspecified site; K21.9 Gastro-esophageal reflux disease without esophagitis; E11.22 Type 2 diabetes mellitus with diabetic chronic kidney disease; Z96.653 Presence of artificial knee joint, bilateral; K64.9 Unspecified hemorrhoids; H40.9 Unspecified glaucoma; Z88.5 Allergy status to narcotic agent; Z88.2 Allergy status to sulfonamides; Z86.711 Personal history of pulmonary embolism; Z90.49 Acquired absence of other specified parts of digestive tract
CPT/HCPCS: 36415; 36416; 80048; 80053; 83036; 85025; J1644; J1650; J1815; J7512

== ENCOUNTER 2024-04-22 08:32 | Emergency (ER) | payer OTHER ==
[2024-04-22 09:50] LABS: #Basophils 0.1 thou/uL (0.0-0.2); #Eosinophils 0.1 thou/uL (0.0-0.7); #Lymphocytes 1.7 thou/uL (1.20-3.40); #Monocytes 0.5 thou/uL (0.11-0.59); %Basophils 1.4 % (0.0-1.0); %Lymphocytes 38.2 % (21.0-51.0); %Monocytes 10.8 % (0.0-10.0); %Neutrophils 46.6 % (42.0-75.0); Hematocrit 36.4 % (36.0-47.0); Hemoglobin 12.3 g/dL (12.0-16.0); Mean Corpuscular HGB CONC 33.9 g/dL (32.0-36.0); Mean Corpuscular Hemoglobin 30.3 pg (27.0-31.0); Mean Corpuscular Volume 89.4 fl (78.0-98.0); Mean Platelet Volume 8.7 fL (7.4-10.4); Platelet Count 131 10x3/uL (130-400); RBC Distribution Width 11.9 % (11.5-14.5); Red Blood Cell (RBC) Count 4.07 mill/uL (4.20-5.40); White Blood Cell (WBC) Count 4.3 10x3/uL (4.8-10.8)
[2024-04-22 09:51] LABS: Chloride 107 mmol/L (98-107); Potassium 3.8 mmol/L (3.5-5.1); Sodium 142 mmol/L (136-145)
[2024-04-22 09:55] LABS: Prothrombin Time 13.5 sec (12.0-14.7)
[2024-04-22 10:00] LABS: Bilirubin Negative (Negative); Blood, Urine Trace (Negative); CAUTI Indications for Culture Acute Hematuria; Clarity Clear (Clear); Glucose, Urine (Dipstick) Negative (Negative); Ketone, Urine Negative (Negative); Leukocyte Negative (Negative); Nitrite Negative (Negative); Protein, Urine (Dipstick) 100 mg/dL (Neg-Trace); RBC/HPF 0-3 HPF (0-3); Specific Gravity, Urine 1.015 (1.005-1.030); Squamous Epithelial 0-3 HPF (0-3); WBC/HPF 0-3 HPF (0-3)
[2024-04-22 10:01] LABS: Urine Culture Reflex No No
[2024-04-22 10:08] LABS: ALT (SGPT) 13 U/L (8-55); AST (SGOT) 18 U/L (5-34); Albumin 3.9 g/dL (3.4-4.8); Alkaline Phosphatase 27 U/L (40-110); Anion Gap 12 mmol/L (10-20); BUN (Urea Nitrogen) 39 mg/dL (9.8-20.1); Bilirubin, Total 1.3 mg/dL (0.2-1.2); Calc. Creatinine Clearance 0 mL/min (70-130); Calcium 11.1 mg/dL (7.8-10.44); Carbon Dioxide 27 mmol/L (23-31); Estimated GFR 22; Globulin 3.8 g/dL (2.4-3.5); Glucose 85 mg/dL (83-110); Protein, Total 7.7 g/dL (5.8-8.1)
== END 2024-04-22 10:50 | disposition home or self-care (01) ==
LOC: NAV ERS 08:32
DX: K64.8 Other hemorrhoids (principal); I12.9 Hypertensive chronic kidney disease with stage 1 through stage 4 chronic kidney disease, or unspecified chronic kidney disease; E11.22 Type 2 diabetes mellitus with diabetic chronic kidney disease; N18.30 Chronic kidney disease, stage 3 unspecified; I48.91 Unspecified atrial fibrillation; K21.9 Gastro-esophageal reflux disease without esophagitis; E78.00 Pure hypercholesterolemia, unspecified; Z79.82 Long term (current) use of aspirin; Z79.899 Other long term (current) drug therapy
CPT/HCPCS: 51701; 80053; 81001; 82274; 85025; 85610; 94760; 99283

== ENCOUNTER 2024-05-31 15:42 | Inpatient (IN) | payer OTHER ==
[2024-05-31] MEDS ORDERED: Polyethylene Glycol 3350 17 GM Packet PO PRN (17:35)
[2024-05-31] MEDS ORDERED: Furosemide 20 MG TAB PO PRN (17:35)
[2024-05-31] MEDS ORDERED: tiZANidine HCl 4 MG TAB PO PRN (17:35)
[2024-05-31] MEDS ORDERED: Acetaminophen 325 MG TAB PO PRN (17:35)
[2024-05-31] MEDS ORDERED: Ondansetron ODT 4 MG TAB SL PRN (17:38)
[2024-05-31] MEDS ORDERED: Glucagon 1 MG/ML KIT IM PRN (17:40)
[2024-05-31] MEDS ORDERED: Dextrose 50% Abboject 50 ML SYRINGE SLOW IVP PRN (17:40)
[2024-05-31] MEDS ORDERED: Albuterol 200 PUFF (6.7GM INHALER) INH PRN (17:41)
[2024-05-31] MEDS ORDERED: Artificial Tear Ophth Sol 15 ML BOT EA EYE PRN (17:46)
[2024-05-31] MEDS ORDERED: Mometasone 200 MCG/Formoterol 5 MCG 60 PUFF INHALER INH PRN (17:48)
[2024-05-31] MEDS: Docusate 100 MG CAP PO SCH (20:38)
[2024-05-31] MEDS: Gabapentin 100 MG CAP PO SCH (20:38)
[2024-05-31] MEDS: Rosuvastatin 10 MG TAB PO SCH (20:38)
[2024-06-01 06:33] LABS: #Basophils 0.1 thou/uL (0.0-0.2); #Eosinophils 0.1 thou/uL (0.0-0.7); #Lymphocytes 2.4 thou/uL (1.20-3.40); #Monocytes 0.7 thou/uL (0.11-0.59); #Neutrophils 2.9 thou/uL (1.40-6.50); %Basophils 0.9 % (0.0-1.0); %Eosinophils 1.4 % (0.0-10.0); %Lymphocytes 39.7 % (21.0-51.0); %Monocytes 10.6 % (0.0-10.0); %Neutrophils 47.5 % (42.0-75.0); Hematocrit 38.3 % (36.0-47.0); Hemoglobin 12.2 g/dL (12.0-16.0); Mean Corpuscular HGB CONC 31.7 g/dL (32.0-36.0); Mean Corpuscular Hemoglobin 28.7 pg (27.0-31.0); Mean Corpuscular Volume 90.4 fl (78.0-98.0); Mean Platelet Volume 8.2 fL (7.4-10.4); Platelet Count 122 10x3/uL (130-400); RBC Distribution Width 11.7 % (11.5-14.5); Red Blood Cell (RBC) Count 4.24 mill/uL (4.20-5.40); White Blood Cell (WBC) Count 6.2 10x3/uL (4.8-10.8)
[2024-06-01 06:52] LABS: ALT (SGPT) 11 U/L (8-55); AST (SGOT) 11 U/L (5-34); Albumin 3.3 g/dL (3.4-4.8); Alkaline Phosphatase 27 U/L (40-110); Anion Gap 15 mmol/L (10-20); BUN (Urea Nitrogen) 39 mg/dL (9.8-20.1); Bilirubin, Total 1.3 mg/dL (0.2-1.2); Calc. Creatinine Clearance 27 mL/min (70-130); Carbon Dioxide 22 mmol/L (23-31); Chloride 107 mmol/L (98-107); Estimated GFR 33; Globulin 3.5 g/dL (2.4-3.5); Glucose 85 mg/dL (83-110); Potassium 4.4 mmol/L (3.5-5.1); Protein, Total 6.8 g/dL (5.8-8.1); Sodium 140 mmol/L (136-145)
[2024-06-01] MEDS: Enoxaparin 30 MG (0.3 mL) SYRINGE SC SCH (10:02)
[2024-06-01] MEDS: Saccharomyces boulardii 250 MG CAP PO SCH (10:05)
[2024-06-01] MEDS: Pantoprazole 40 MG DR.TAB PO SCH (10:05)
[2024-06-01] MEDS: Multivitamin W/ Minerals 1 TAB PO SCH (10:06)
[2024-06-01] MEDS: Empagliflozin 10 MG TAB PO SCH (10:06)
[2024-06-01] MEDS: Glimepiride 2 MG TAB PO SCH (10:06)
[2024-06-01] MEDS: Amlodipine 5 MG TAB PO SCH (10:08)
[2024-06-01] MEDS: Metoprolol Succinate XL 50 MG ER.TAB PO SCH (10:09)
[2024-06-01] MEDS: predniSONE 5 MG TAB PO SCH (10:10)
[2024-06-03] MEDS: Insulin Lispro 100 UNIT/ML 10 ML VIAL SC PRN ×2 (16:49→21:38)
[2024-06-04] MEDS: Acetaminophen 325 MG TAB PO PRN (07:22)
[2024-06-05 05:34] LABS: #Basophils 0.1 thou/uL (0.0-0.2); #Eosinophils 0.1 thou/uL (0.0-0.7); #Lymphocytes 2.5 thou/uL (1.20-3.40); #Monocytes 0.7 thou/uL (0.11-0.59); #Neutrophils 2.8 thou/uL (1.40-6.50); %Basophils 0.8 % (0.0-1.0); %Eosinophils 1.4 % (0.0-10.0); %Lymphocytes 40.5 % (21.0-51.0); %Neutrophils 46.3 % (42.0-75.0); Hematocrit 37.4 % (36.0-47.0); Hemoglobin 11.8 g/dL (12.0-16.0); Mean Corpuscular HGB CONC 31.6 g/dL (32.0-36.0); Mean Corpuscular Hemoglobin 28.6 pg (27.0-31.0); Mean Corpuscular Volume 90.3 fl (78.0-98.0); Mean Platelet Volume 8.3 fL (7.4-10.4); Platelet Count 153 10x3/uL (130-400); RBC Distribution Width 11.5 % (11.5-14.5); Red Blood Cell (RBC) Count 4.14 mill/uL (4.20-5.40); White Blood Cell (WBC) Count 6.1 10x3/uL (4.8-10.8)
[2024-06-05 05:51] LABS: Anion Gap 16 mmol/L (10-20); BUN (Urea Nitrogen) 53 mg/dL (9.8-20.1); Calc. Creatinine Clearance 22 mL/min (70-130); Carbon Dioxide 22 mmol/L (23-31); Chloride 106 mmol/L (98-107); Estimated GFR 27; Glucose 94 mg/dL (83-110); Potassium 4.2 mmol/L (3.5-5.1); Sodium 140 mmol/L (136-145)
[2024-06-05] MEDS: predniSONE 5 MG TAB PO SCH (09:12)
[2024-06-06 05:32] VITALS: BMI 28.1
[2024-06-07 06:16] LABS: Anion Gap 15 mmol/L (10-20); BUN (Urea Nitrogen) 49 mg/dL (9.8-20.1); Calc. Creatinine Clearance 23 mL/min (70-130); Calcium 10.7 mg/dL (7.8-10.44); Carbon Dioxide 24 mmol/L (23-31); Chloride 104 mmol/L (98-107); Estimated GFR 29; Glucose 86 mg/dL (83-110); Potassium 4.7 mmol/L (3.5-5.1); Sodium 138 mmol/L (136-145)
[2024-06-07 10:23] VITALS: BMI 27.9
[2024-06-09 08:06] VITALS: BP 159/96; TEMP 98.2
[2024-06-10] MEDS ORDERED: predniSONE 5 MG TAB PO SCH (09:00)
[2024-06-15] MEDS ORDERED: predniSONE 5 MG TAB PO SCH (09:00)
[2024-06-20] MEDS ORDERED: predniSONE 5 MG TAB PO SCH (09:00)
== END 2024-06-09 11:05 | disposition home or self-care (01) | DRG 945 ==
LOC: NAV ACUTE 17:07 → UNDOADMIN 17:07
PROVIDERS: ADMIT Family Medicine; ATTEND Family Medicine
PROC: F07Z9ZZ Gait Training/Functional Ambulation Treatment (ICD-10-PCS; principal; 2024-06-01)
DX: R53.81 Other malaise (principal); I50.32 Chronic diastolic (congestive) heart failure; N18.4 Chronic kidney disease, stage 4 (severe); E11.22 Type 2 diabetes mellitus with diabetic chronic kidney disease; K21.9 Gastro-esophageal reflux disease without esophagitis; E78.5 Hyperlipidemia, unspecified; I48.0 Paroxysmal atrial fibrillation; Z96.653 Presence of artificial knee joint, bilateral; M19.90 Unspecified osteoarthritis, unspecified site; M35.3 Polymyalgia rheumatica; Z86.711 Personal history of pulmonary embolism; Z90.49 Acquired absence of other specified parts of digestive tract; Z88.2 Allergy status to sulfonamides; Z88.5 Allergy status to narcotic agent
CPT/HCPCS: 36415; 36416; 80048; 80053; 85025; J1650; J1815; J7512